=== PATIENT | male | born 1955 | race Caucasian/White ===

== ENCOUNTER 2019-10-23 07:32 | Outpatient (CLI) | payer BC ==
--- NOTE | 2019-10-23 08:26 | ULT ---
ABDOMINAL ULTRASOUND: DATE: 10/23/2019. PROVIDED CLINICAL HISTORY: Splenomegaly and anemia. FINDINGS: The visualized abdominal aorta, IVC, and pancreas appear normal. The liver demonstrates no evidence for a mass or intrahepatic biliary ductal dilatation. The common duct is not dilated. The gallbladder is contracted but echogenic nonshadowing nonmobile f ocus adherence of the anterior wall measuring about 4 mm. No wall thickening or pericholecystic flui d. Kidneys demonstrate no evidence for hydronephrosis or solid mass. Simple-appearing 1 cm exophytic le ft renal cyst. The spleen appears enlarged measuring about 15.7 x 5.8 x 14.5 cm. IMPRESSION: 1. Splenomegaly. 2. Nonmobile echogenic focus associated with the gallbladder wall is likely reflective of an adheren t small gallstone versus polyp. POS: OFF
== END 2019-10-23 07:33 | disposition home or self-care (01) ==
LOC: BICULT 07:32
PROVIDERS: ATTEND Internal Medicine Hematology & Oncology
DX: R16.1 Splenomegaly, not elsewhere classified (principal); D50.9 Iron deficiency anemia, unspecified
CPT/HCPCS: 93975

== ENCOUNTER 2019-10-28 08:31 | Day surgery (SDC) | payer BC ==
[2019-10-27 13:28] VITALS: BMI 26.5
[2019-10-28 08:55] LABS: PTT 27.4 SEC (22.9-36.1); Prothrombin Time 13.5 SEC (12.0-14.7)
[2019-10-28 10:50] VITALS: BP 123/68; TEMP 97.6
--- NOTE | 2019-10-28 17:23 | CT ---
CT-guided random bone marrow biopsy: DATE: 10/28/2019 HISTORY: 64-year-old male with iron deficiency anemia. TECHNIQUE: Signed informed consent obtained. Patient placed prone on CT table. Skin over right posterior superio r iliac spine prepped and draped in usual sterile fashion. 25-gauge needle used to apply buffered lidocaine superficially at the skin, then multiple times at the posterior periosteal surface. 12-gaug e on control biopsy needle with stylette advanced into the marrow cavity a depth of 1.5 cm using power drill. Stylette removed. Bone marrow aspiration performed, first 3 mL, then 6 mL, with both syr inges given to ophthalmic technician apprentice from laboratory. Next, using power drill, the biopsy needle was advanced and retracted. Compression was held at the puncture site. Patient tolerated procedure well. No compli cations. 4.5 cm fragment of bone in at least 2 pieces, were given to the geochemical laboratory technician. IMPRESSION: 1. Successful bone marrow aspiration. 2. Successful bone marrow biopsy.
== END 2019-10-28 11:30 | disposition home or self-care (01) ==
LOC: CT 08:31
PROVIDERS: ATTEND Internal Medicine Hematology & Oncology
PROC: 079T3ZX Drainage of Bone Marrow, Percutaneous Approach, Diagnostic (ICD-10-PCS; principal; 2019-10-28)
PROC: 07DR3ZX Extraction of Iliac Bone Marrow, Percutaneous Approach, Diagnostic (ICD-10-PCS; principal; 2019-10-28)
DX: D50.9 Iron deficiency anemia, unspecified (principal)
CPT/HCPCS: 20225; 36415; 77012; 85097; 85610; 85730; 88184; 88237; 88305; 88311; 88313; 88341; 88342

== ENCOUNTER 2021-12-06 20:32 | Inpatient (IN) | payer BC, MEDICARE ==
[2021-12-06 22:00] LABS: Hemoglobin 9.6 g/dL (14.0-18.0); Mean Corpuscular HGB CONC 32.8 g/dL (32.0-36.0); Mean Corpuscular Hemoglobin 35.7 pg (27.0-31.0); Mean Platelet Volume 10.6 fL (7.4-10.4); Platelet Count 202 thou/uL (130-400); RBC Distribution Width 25.6 % (11.5-14.5); Red Blood Cell (RBC) Count 2.69 mill/uL (4.70-6.10); White Blood Cell (WBC) Count 5.4 thou/uL (4.8-10.8)
[2021-12-06 22:12] LABS: ALT (SGPT) 20 U/L (8-55); AST (SGOT) 16 U/L (5-34); Albumin 4.7 g/dL (3.4-4.8); Alkaline Phosphatase 56 U/L (40-110); Anion Gap 15 mmol/L (10-20); BUN (Urea Nitrogen) 17 mg/dL (8.4-25.7); Bilirubin, Total 0.7 mg/dL (0.2-1.2); Calc. Creatinine Clearance 0 mL/min (70-130); Calcium 9.8 mg/dL (7.8-10.44); Carbon Dioxide 23 mmol/L (23-31); Chloride 107 mmol/L (98-107); Globulin 2.4 g/dL (2.4-3.5); Glucose 195 mg/dL (80-115); Potassium 4.4 mmol/L (3.5-5.1); Protein, Total 7.1 g/dL (5.8-8.1); Sodium 141 mmol/L (136-145)
[2021-12-06] MEDS ORDERED: Piperacillin/Tazobactam 3.375 GM VIAL ONE (22:15)
[2021-12-06 22:18] LABS: #Basophils 0.1 thou/uL (0.0-0.2); #Eosinphils 0.2 thou/uL (0.0-0.7); #Monocytes 0.4 thou/uL (0.11-0.59); #Neutrophils 3.8 thou/uL (1.40-6.50); %Eosinophils 3.5 % (0.0-10.0); %Lymphocytes 18.2 % (21.0-51.0); %Monocytes 6.6 % (0.0-10.0); %Neutrophils 70.7 % (42.0-75.0); Anisocytosis MODERATE=16-30 cells (100X) (0-5/hpf); MDiff Complete? YES; Macrocytosis SLIGHT = 6-15 cells (100X) (0-5/hpf); Schistocytes SLIGHT = 2-5 cells (100X) (0-1/hpf); Tear Drops SLIGHT = 2-5 cells (100X) (0-1/hpf)
[2021-12-07] MEDS ORDERED: Vancomycin 1 GM/200 ML BAG ONE (00:02)
[2021-12-07 00:56] LABS: Lactic Acid 1.8 mmol/L (0.5-2.2)
[2021-12-07 01:05] VITALS: BMI 27.5
[2021-12-07] MEDS: Sodium Chloride 0.9% 1,000 ML IV SCH ×3 (01:22→18:06)
[2021-12-07] MEDS ORDERED: Morphine 4 MG/ML VIAL SLOW IVP PRN (01:23)
[2021-12-07] MEDS ORDERED: Dextrose 5% in Water 1,000 ML IV PRN (03:45)
[2021-12-07] MEDS ORDERED: Ondansetron PF 4 MG/2 ML Vial IVP PRN (03:45)
[2021-12-07] MEDS ORDERED: Dextrose 50% Abboject 50 ML SYRINGE SLOW IVP PRN (03:45)
[2021-12-07] MEDS ORDERED: HumaLOG 300 UNITS/3 ML VIAL SC PRN ×2 (03:45)
[2021-12-07] MEDS ORDERED: Ondansetron ODT 4 MG TAB PO PRN (03:45)
[2021-12-07] MEDS ORDERED: Acetaminophen 650 MG Suppository PR PRN (03:45)
[2021-12-07] MEDS: cefTRIAXone\\ROCEPHIN 1 GM in Sodium Chloride 0.9% 100 ML IVPB SCH (05:18)
[2021-12-07] MEDS: Acetaminophen 325 MG TAB PO PRN ×2 (05:47→13:33)
[2021-12-07] MEDS: Enoxaparin Sodium 40 MG/0.4 ML SYRINGE SC SCH (09:23)
[2021-12-07] MEDS ORDERED: Amlodipine 5 MG TAB PO SCH (10:00)
[2021-12-07] MEDS ORDERED: metFORMIN 850 MG TAB PO SCH (10:00)
[2021-12-07] MEDS ORDERED: Iopamidol-370 76% 500 ML 1 ML ONE (10:41)
[2021-12-07] MEDS ORDERED: Iopamidol 370 76% 50 ML VIAL FS ONE (10:41)
[2021-12-07 14:37] LABS: SARS-CoV-2 PCR by NAA Not Detected (NotDetected)
[2021-12-07] MEDS: metFORMIN 850 MG TAB PO SCH (17:00)
[2021-12-07] MEDS: Gabapentin 300 MG CAP PO SCH (21:42)
[2021-12-07] MEDS: Lisinopril 10 MG TAB PO SCH (21:42)
[2021-12-07] MEDS: Aspirin Chewable 81 MG TAB PO SCH (21:43)
[2021-12-07] MEDS: Atorvastatin Calcium 10 MG TAB PO SCH (21:43)
[2021-12-08] MEDS: Sodium Chloride 0.9% 1,000 ML IV SCH ×2 (00:01→07:38)
[2021-12-08] MEDS: cefTRIAXone\\ROCEPHIN 1 GM in Sodium Chloride 0.9% 100 ML IVPB SCH (05:19)
[2021-12-08 06:33] LABS: #Eosinphils 0.2 thou/uL (0.0-0.7); #Monocytes 0.3 thou/uL (0.11-0.59); #Neutrophils 2.4 thou/uL (1.40-6.50); %Basophils 0.6 % (0.0-1.0); %Eosinophils 4.5 % (0.0-10.0); %Lymphocytes 25.4 % (21.0-51.0); %Monocytes 7.6 % (0.0-10.0); Hemoglobin 8.6 g/dL (14.0-18.0); Mean Corpuscular HGB CONC 34.3 g/dL (32.0-36.0); Mean Platelet Volume 10.8 fL (7.4-10.4); Platelet Count 166 thou/uL (130-400); Red Blood Cell (RBC) Count 2.31 mill/uL (4.70-6.10); White Blood Cell (WBC) Count 3.8 thou/uL (4.8-10.8)
[2021-12-08 06:54] LABS: Anion Gap 11 mmol/L (10-20); BUN (Urea Nitrogen) 12 mg/dL (8.4-25.7); Calc. Creatinine Clearance 117 mL/min (70-130); Carbon Dioxide 24 mmol/L (23-31); Chloride 108 mmol/L (98-107); Glucose 123 mg/dL (80-115); Potassium 4.3 mmol/L (3.5-5.1); Sodium 139 mmol/L (136-145)
[2021-12-08] MEDS ORDERED: Piperacillin/Tazobactam 3.375 GM in Sodium Chloride 0.9% 100 ML IVPB SCH ×2 (07:15→08:00)
[2021-12-08] MEDS: metFORMIN 850 MG TAB PO SCH ×2 (07:41→16:23)
[2021-12-08] MEDS: Amlodipine 5 MG TAB PO SCH (07:42)
[2021-12-08] MEDS: Enoxaparin Sodium 40 MG/0.4 ML SYRINGE SC SCH (07:42)
[2021-12-08] MEDS ORDERED: Heparin 5,000 UNITS/ML VIAL ONE (08:04)
[2021-12-08] MEDS ORDERED: Protamine Sulfate 50 MG/5 ML VIAL ONE (08:04)
[2021-12-08] MEDS ORDERED: Bupivacaine PF 0.5% 30 ML VIAL ONE (08:20)
[2021-12-08] MEDS ORDERED: EPINEPHrine 1 MG/ML AMP ONE (08:20)
[2021-12-08] MEDS ORDERED: Fentanyl 250 MCG/5 ML VIAL ONE (08:38)
[2021-12-08] MEDS ORDERED: Phenylephrine 10 MG/ML VIAL ONE (08:38)
[2021-12-08] MEDS ORDERED: Lidocaine 1% MPF 2 ML VIAL ONE (08:59)
[2021-12-08] MEDS ORDERED: Ondansetron PF 4 MG/2 ML Vial ONE (10:59)
[2021-12-08] MEDS ORDERED: Dexamethasone 20 MG/5 ML VIAL ONE (10:59)
[2021-12-08] MEDS ORDERED: Lidocaine 1% PF 5 ML VIAL ONE (10:59)
[2021-12-08] MEDS ORDERED: Glycopyrrolate 0.2 MG/ML 5 ML SYRINGE ONE (10:59)
[2021-12-08] MEDS ORDERED: Rocuronium Bromide 10 MG/ML (10ML VIAL) ONE (10:59)
[2021-12-08] MEDS ORDERED: PROPOFOL 200 MG/20 ML VIAL ONE (10:59)
[2021-12-08] MEDS ORDERED: Heparin 10,000 UNITS/ 10 ML VIAL ONE (11:35)
[2021-12-08] MEDS ORDERED: Fentanyl 100 MCG/2 ML VIAL SLOW IVP PRN (12:51)
[2021-12-08] MEDS ORDERED: Morphine Sulfate 2 MG/ML SYRINGE SLOW IVP PRN (13:01)
[2021-12-08] MEDS ORDERED: Ondansetron HCl/PF 4 MG/2 ML Vial IVP PRN (13:01)
[2021-12-08] MEDS ORDERED: Promethazine HCl 25 MG/ML VIAL IM PRN (13:01)
[2021-12-08] MEDS ORDERED: Promethazine HCl 25 MG/ML VIAL IVPB PRN (13:01)
[2021-12-08] MEDS: Lactated Ringer's 1,000 ML IV SCH (14:44)
[2021-12-08] MEDS: Piperacillin/Tazobactam 3.375 GM in Sodium Chloride 0.9% 100 ML IVPB SCH ×2 (16:23→23:04)
[2021-12-08] MEDS: HYDROcodone/Acetaminophen 5/325 mg Tablet PO PRN ×2 (17:23→23:03)
[2021-12-08 17:30] LABS: Anion Gap 12 mmol/L (10-20); BUN (Urea Nitrogen) 14 mg/dL (8.4-25.7); Calc. Creatinine Clearance 103 mL/min (70-130); Calcium 8.9 mg/dL (7.8-10.44); Carbon Dioxide 23 mmol/L (23-31); Chloride 107 mmol/L (98-107); Glucose 179 mg/dL (80-115); Potassium 4.5 mmol/L (3.5-5.1); Sodium 137 mmol/L (136-145)
[2021-12-08] MEDS: VICTOZA 18 MG/3 ML PEN SC SCH (20:58)
[2021-12-08] MEDS: Aspirin Chewable 81 MG TAB PO SCH (20:58)
[2021-12-08] MEDS: Gabapentin 300 MG CAP PO SCH (20:59)
[2021-12-08] MEDS: Atorvastatin Calcium 10 MG TAB PO SCH (20:59)
[2021-12-08] MEDS: Lisinopril 10 MG TAB PO SCH (20:59)
[2021-12-09] MEDS: Lactated Ringer's 1,000 ML IV SCH ×2 (04:58→16:49)
[2021-12-09 06:07] LABS: #Eosinphils 0.1 thou/uL (0.0-0.7); #Lymphocytes 1.2 thou/uL (1.20-3.40); #Monocytes 0.6 thou/uL (0.11-0.59); #Neutrophils 4.3 thou/uL (1.40-6.50); %Basophils 0.4 % (0.0-1.0); %Eosinophils 1.4 % (0.0-10.0); %Lymphocytes 19.3 % (21.0-51.0); %Monocytes 10.2 % (0.0-10.0); %Neutrophils 68.7 % (42.0-75.0); Mean Corpuscular HGB CONC 33.5 g/dL (32.0-36.0); Mean Corpuscular Hemoglobin 36.6 pg (27.0-31.0); Mean Platelet Volume 10.3 fL (7.4-10.4); Platelet Count 179 thou/uL (130-400); RBC Distribution Width 25.1 % (11.5-14.5); Red Blood Cell (RBC) Count 2.19 mill/uL (4.70-6.10); White Blood Cell (WBC) Count 6.3 thou/uL (4.8-10.8)
[2021-12-09] MEDS: Piperacillin/Tazobactam 3.375 GM in Sodium Chloride 0.9% 100 ML IVPB SCH ×3 (07:47→23:20)
[2021-12-09] MEDS: Amlodipine 5 MG TAB PO SCH (07:50)
[2021-12-09] MEDS: metFORMIN 850 MG TAB PO SCH ×2 (07:50→16:50)
[2021-12-09] MEDS: Enoxaparin Sodium 40 MG/0.4 ML SYRINGE SC SCH (07:50)
[2021-12-09] MEDS: HYDROcodone/Acetaminophen 5/325 mg Tablet PO PRN ×2 (11:38→20:30)
[2021-12-09 16:01] LABS: Anion Gap 12 mmol/L (10-20); BUN (Urea Nitrogen) 14 mg/dL (8.4-25.7); Calc. Creatinine Clearance 105 mL/min (70-130); Calcium 8.7 mg/dL (7.8-10.44); Carbon Dioxide 23 mmol/L (23-31); Chloride 109 mmol/L (98-107); Glucose 143 mg/dL (80-115); Potassium 3.7 mmol/L (3.5-5.1); Sodium 140 mmol/L (136-145)
[2021-12-09] MEDS: Aspirin Chewable 81 MG TAB PO SCH (20:29)
[2021-12-09] MEDS: Gabapentin 300 MG CAP PO SCH (20:29)
[2021-12-09] MEDS: Lisinopril 10 MG TAB PO SCH (20:29)
[2021-12-09] MEDS: VICTOZA 18 MG/3 ML PEN SC SCH (20:30)
[2021-12-09] MEDS: Atorvastatin Calcium 10 MG TAB PO SCH (20:30)
[2021-12-10] MEDS ORDERED: Bisacodyl 5 MG TAB PO PRN (00:06)
[2021-12-10] MEDS ORDERED: Calcium Carbonate 500 MG ChewTAB PO PRN (00:06)
[2021-12-10] MEDS: Lactated Ringer's 1,000 ML IV SCH (05:00)
[2021-12-10] MEDS: HYDROcodone/Acetaminophen 5/325 mg Tablet PO PRN (05:06)
[2021-12-10 06:32] LABS: #Eosinphils 0.1 thou/uL (0.0-0.7); #Lymphocytes 0.8 thou/uL (1.20-3.40); #Monocytes 0.5 thou/uL (0.11-0.59); #Neutrophils 3.9 thou/uL (1.40-6.50); %Basophils 0.4 % (0.0-1.0); %Eosinophils 2.3 % (0.0-10.0); %Lymphocytes 15.3 % (21.0-51.0); %Monocytes 10.1 % (0.0-10.0); %Neutrophils 71.9 % (42.0-75.0); Hemoglobin 8.1 g/dL (14.0-18.0); Mean Corpuscular HGB CONC 32.8 g/dL (32.0-36.0); Mean Corpuscular Hemoglobin 36.4 pg (27.0-31.0); Mean Platelet Volume 10.1 fL (7.4-10.4); Platelet Count 189 thou/uL (130-400); RBC Distribution Width 25.2 % (11.5-14.5); Red Blood Cell (RBC) Count 2.22 mill/uL (4.70-6.10); White Blood Cell (WBC) Count 5.4 thou/uL (4.8-10.8)
[2021-12-10 08:12] VITALS: TEMP 98.1
[2021-12-10] MEDS: Piperacillin/Tazobactam 3.375 GM in Sodium Chloride 0.9% 100 ML IVPB SCH (08:39)
[2021-12-10] MEDS: metFORMIN 850 MG TAB PO SCH (08:39)
[2021-12-10] MEDS: Amlodipine 5 MG TAB PO SCH (08:39)
[2021-12-10] MEDS: Enoxaparin Sodium 40 MG/0.4 ML SYRINGE SC SCH (08:40)
[2021-12-10 13:34] VITALS: BP 157/70
== END 2021-12-10 13:25 | disposition home or self-care (01) | DRG 253 ==
LOC: ERS 20:32 → T4-A 23:09
PROVIDERS: ADMIT Student in an Organized Health Care Education/Training Program; ATTEND Internal Medicine
PROC: 04CK0ZZ Extirpation of Matter from Right Femoral Artery, Open Approach (ICD-10-PCS; principal; 2021-12-08)
PROC: 04UK0KZ Supplement Right Femoral Artery with Nonautologous Tissue Substitute, Open Approach (ICD-10-PCS; 2021-12-08)
DX: E11.51 Type 2 diabetes mellitus with diabetic peripheral angiopathy without gangrene (principal); L03.115 Cellulitis of right lower limb; I70.92 Chronic total occlusion of artery of the extremities; Z20.822 Contact with and (suspected) exposure to COVID-19; D53.9 Nutritional anemia, unspecified; L97.519 Non-pressure chronic ulcer of other part of right foot with unspecified severity; D46.9 Myelodysplastic syndrome, unspecified; I70.235 Atherosclerosis of native arteries of right leg with ulceration of other part of foot; F17.210 Nicotine dependence, cigarettes, uncomplicated; K59.00 Constipation, unspecified; Z79.899 Other long term (current) drug therapy; Z79.82 Long term (current) use of aspirin; Z90.49 Acquired absence of other specified parts of digestive tract
CPT/HCPCS: 36415; 36416; 75635; 80048; 80053; 83605; 85025; 86850; 86900; 86901; 87040; 96365; C1713; C1776; J0171; J0696; J1100; J1642; J1644; J1650; J1815; J2270; J2370; J2405; J2543; J2704; J2720; J3010; J3370; J3490; J7050; J7120; Q9967; S0020; U0003; U0005

== ENCOUNTER 2022-03-29 08:54 | Day surgery (SDC) | payer BC, OTHER ==
[2022-03-29] MEDS ORDERED: diphenhydrAMINE 25 MG CAP ONE (09:18)
[2022-03-29] MEDS ORDERED: Acetaminophen 500 MG TAB ONE (09:18)
[2022-03-29] MEDS ORDERED: diphenhydrAMINE 25 MG CAP PO SCH (09:30)
[2022-03-29] MEDS ORDERED: Acetaminophen 500 MG TAB PO SCH (09:30)
[2022-03-29 11:54] VITALS: TEMP 97.8
[2022-03-29 14:14] VITALS: BP 122/68
== END 2022-03-29 14:14 | disposition home or self-care (01) ==
LOC: ONC/OP 08:54
PROVIDERS: ATTEND Internal Medicine Hematology & Oncology
PROC: 30233N1 Transfusion of Nonautologous Red Blood Cells into Peripheral Vein, Percutaneous Approach (ICD-10-PCS; principal; 2022-03-29)
DX: D64.9 Anemia, unspecified (principal); D69.6 Thrombocytopenia, unspecified
CPT/HCPCS: 36430; 86850; 86900; 86901; P9016

== ENCOUNTER 2023-06-05 15:35 | Emergency (ER) | payer BC, MEDICARE ==
[2023-06-05 16:33] LABS: #Eosinphils 0.1 thou/uL (0.0-0.7); #Monocytes 0.5 thou/uL (0.11-0.59); #Neutrophils 4.4 thou/uL (1.40-6.50); %Basophils 0.5 % (0.0-1.0); %Lymphocytes 14.9 % (21.0-51.0); %Monocytes 8.1 % (0.0-10.0); %Neutrophils 74.5 % (42.0-75.0); Hematocrit 30.8 % (42.0-52.0); Hemoglobin 10.5 g/dL (14.0-18.0); Mean Corpuscular HGB CONC 34.1 g/dL (32.0-36.0); Mean Corpuscular Hemoglobin 34.8 pg (27.0-31.0); Mean Platelet Volume 12.2 fL (7.4-10.4); Platelet Count 267 10x3/uL (130-400); RBC Distribution Width 21.8 % (11.5-14.5); Red Blood Cell (RBC) Count 3.02 mill/uL (4.70-6.10)
[2023-06-05 16:55] LABS: ALT (SGPT) 27 U/L (8-55); AST (SGOT) 23 U/L (5-34); Alkaline Phosphatase 65 U/L (40-110); Anion Gap 15 mmol/L (10-20); BUN (Urea Nitrogen) 16 mg/dL (8.4-25.7); Bilirubin, Total 1.6 mg/dL (0.2-1.2); Calc. Creatinine Clearance 0 mL/min (70-130); Calcium 9.8 mg/dL (7.8-10.44); Carbon Dioxide 21 mmol/L (23-31); Chloride 105 mmol/L (98-107); Estimated GFR 72; Globulin 2.4 g/dL (2.4-3.5); Glucose 197 mg/dL (80-115); Potassium 4.4 mmol/L (3.5-5.1); Protein, Total 7.4 g/dL (5.8-8.1); Sodium 137 mmol/L (136-145)
[2023-06-05 17:01] LABS: Troponin I 0.011 ng/mL (< 0.028)
[2023-06-05 18:04] LABS: Bacteria/HPF None Seen HPF (None Seen); Bilirubin Negative (Negative); Blood, Urine Negative (Negative); CAUTI Indications for Culture Dysuria,urgency,freq; Clarity Clear (Clear); Glucose, Urine (Dipstick) Normal (Negative); Ketone, Urine Negative (Negative); Leukocyte Negative Leu/uL (Negative); Nitrite Negative (Negative); Protein, Urine (Dipstick) 30 mg/dL (Neg-Trace); RBC/HPF None Seen HPF (0-3); Specific Gravity, Urine 1.018 (1.002-1.036); Squamous Epithelial None Seen HPF (0-3); Urobilinogen Normal mg/dL (Less than 2); WBC/HPF 0-3 HPF (0-3); pH, Urine 5.5 (5.0-9.0)
[2023-06-05 18:06] LABS: Urine Culture Reflex No No
== END 2023-06-05 18:18 | disposition home or self-care (01) ==
LOC: ERS 15:35
DX: S00.83XA Contusion of other part of head, initial encounter (principal); S00.31XA Abrasion of nose, initial encounter; E11.9 Type 2 diabetes mellitus without complications; Z79.84 Long term (current) use of oral hypoglycemic drugs; W19.XXXA Unspecified fall, initial encounter
CPT/HCPCS: 36415; 70450; 71045; 80076; 81001; 84484; 85025; 85379; 93005

== ENCOUNTER 2023-08-13 12:01 | Day surgery (SDC) | payer MEDICARE, BC ==
[2023-08-13] MEDS ORDERED: diphenhydrAMINE 25 MG CAP PO SCH (12:30)
[2023-08-13] MEDS ORDERED: Acetaminophen 500 MG TAB PO SCH (12:30)
[2023-08-13] MEDS ORDERED: Acetaminophen 500 MG TAB ONE (12:49)
[2023-08-13] MEDS ORDERED: diphenhydrAMINE 25 MG CAP ONE (12:49)
[2023-08-13] MEDS ORDERED: FLU VACC QS2023(65UP)/MF59C/PF 60 MCG/0.5 ML SYRINGE IM ONE (14:30)
[2023-08-13 16:00] VITALS: BP 137/65; TEMP 98.2
== END 2023-08-13 15:56 | disposition home or self-care (01) ==
LOC: ONC/OP 12:01
PROVIDERS: ATTEND Internal Medicine Hematology & Oncology
DX: D64.9 Anemia, unspecified (principal); D69.6 Thrombocytopenia, unspecified
CPT/HCPCS: 36430; 86850; 86900; 86901; 86920; 90694; G0008; P9016; 90471

== ENCOUNTER 2023-09-19 07:43 | Outpatient (CLI) | payer MEDICARE, BC | END 2023-09-19 07:44 | disposition home or self-care (01) | LOC: CT 07:43 | PROVIDERS: ATTEND Specialist | DX: I65.23 Occlusion and stenosis of bilateral carotid arteries (principal) | CPT/HCPCS: 70498; 82565 ==

== ENCOUNTER 2024-07-20 08:48 | Day surgery (SDC) | payer MEDICARE, BC ==
[2024-07-17 13:34] VITALS: BMI 26.6
[2024-07-20] MEDS ORDERED: Lidocaine 1% w/Epinephrine 1:100K 20 ML VIAL ONE (10:19)
== END 2024-07-20 12:47 | disposition home or self-care (01) ==
LOC: SDC 08:48
PROVIDERS: ATTEND Internal Medicine Cardiovascular Disease
PROC: 0JH632Z Insertion of Monitoring Device into Chest Subcutaneous Tissue and Fascia, Percutaneous Approach (ICD-10-PCS; principal; 2024-07-20)
DX: R55 Syncope and collapse (principal); I44.1 Atrioventricular block, second degree; I44.30 Unspecified atrioventricular block; E11.9 Type 2 diabetes mellitus without complications; I10 Essential (primary) hypertension; I77.9 Disorder of arteries and arterioles, unspecified; E78.5 Hyperlipidemia, unspecified; I73.9 Peripheral vascular disease, unspecified; R42 Dizziness and giddiness; I65.03 Occlusion and stenosis of bilateral vertebral arteries; Z79.84 Long term (current) use of oral hypoglycemic drugs; Z79.85 Long-term (current) use of injectable non-insulin antidiabetic drugs; Z79.82 Long term (current) use of aspirin; Z79.899 Other long term (current) drug therapy; Z87.891 Personal history of nicotine dependence; Z90.49 Acquired absence of other specified parts of digestive tract
CPT/HCPCS: 33285

== ENCOUNTER 2024-08-13 09:15 | Day surgery (SDC) | payer MEDICARE, BC ==
[2024-08-13] MEDS ORDERED: diphenhydrAMINE 25 MG CAP PO SCH (09:30)
[2024-08-13] MEDS ORDERED: Acetaminophen 500 MG TAB ONE (10:38)
[2024-08-13] MEDS: Acetaminophen 500 MG TAB PO SCH (10:39)
[2024-08-13 13:58] VITALS: BP 129/61; TEMP 98.1
[2024-08-13] MEDS ORDERED: FLU (Fluad Triv) TS24-25 (65UP)/MF59C/PF 45 MCG/0.5 ML Syringe IM ONE (14:30)
== END 2024-08-13 13:59 | disposition home or self-care (01) ==
LOC: ONC/OP 09:15
PROVIDERS: ATTEND Internal Medicine Hematology & Oncology
DX: D64.9 Anemia, unspecified (principal); D69.6 Thrombocytopenia, unspecified
CPT/HCPCS: 36430; 86850; 86900; 86901; 86920; P9016

== ENCOUNTER 2024-09-04 09:23 | Day surgery (SDC) | payer MEDICARE, BC ==
[2024-09-04] MEDS ORDERED: diphenhydrAMINE 25 MG CAP ONE (09:57)
[2024-09-04] MEDS ORDERED: Acetaminophen 500 MG TAB ONE (09:57)
[2024-09-04] MEDS: diphenhydrAMINE 25 MG CAP PO SCH (09:58)
[2024-09-04] MEDS: Acetaminophen 500 MG TAB PO SCH (09:58)
[2024-09-04 15:05] VITALS: BP 127/71; TEMP 98.1
== END 2024-09-04 15:20 | disposition home or self-care (01) ==
LOC: ONC/OP 09:23
PROVIDERS: ATTEND Internal Medicine Hematology & Oncology
DX: D64.9 Anemia, unspecified (principal); D69.6 Thrombocytopenia, unspecified
CPT/HCPCS: 36430; 86850; 86900; 86901; 86920; P9016

== ENCOUNTER 2024-09-17 10:11 | Day surgery (SDC) | payer MEDICARE, BC ==
[2024-09-17] MEDS ORDERED: Acetaminophen 500 MG TAB ONE (10:45)
[2024-09-17] MEDS ORDERED: diphenhydrAMINE 25 MG CAP ONE (10:46)
[2024-09-17] MEDS: diphenhydrAMINE 25 MG CAP PO SCH (10:47)
[2024-09-17] MEDS: Acetaminophen 500 MG TAB PO SCH (10:47)
[2024-09-17 14:02] VITALS: TEMP 98.1
[2024-09-17 15:52] VITALS: BP 120/63
== END 2024-09-17 16:09 | disposition home or self-care (01) ==
LOC: ONC/OP 10:11
PROVIDERS: ATTEND Internal Medicine Hematology & Oncology
DX: D64.9 Anemia, unspecified (principal); D69.6 Thrombocytopenia, unspecified
CPT/HCPCS: 36430; 86850; 86900; 86901; 86920; P9016

== ENCOUNTER 2024-09-23 11:05 | Day surgery (SDC) | payer MEDICARE, BC ==
[2024-09-23] MEDS ORDERED: Acetaminophen 500 MG TAB ONE (12:07)
[2024-09-23] MEDS ORDERED: diphenhydrAMINE 25 MG CAP ONE (12:07)
[2024-09-23] MEDS: Acetaminophen 500 MG TAB PO SCH (12:10)
[2024-09-23] MEDS: diphenhydrAMINE 25 MG CAP PO SCH (12:10)
[2024-09-23 13:46] VITALS: TEMP 98.5
[2024-09-23 15:05] VITALS: BP 120/59
== END 2024-09-23 15:07 | disposition home or self-care (01) ==
LOC: ONC/OP 11:05
PROVIDERS: ATTEND Internal Medicine Hematology & Oncology
DX: D64.9 Anemia, unspecified (principal); D69.6 Thrombocytopenia, unspecified
CPT/HCPCS: 36430; 86850; 86900; 86901; 86920; P9016

== ENCOUNTER 2024-10-01 10:45 | Day surgery (SDC) | payer MEDICARE, BC ==
[2024-10-01] MEDS ORDERED: Acetaminophen 500 MG TAB ONE (11:38)
[2024-10-01] MEDS ORDERED: diphenhydrAMINE 25 MG CAP ONE (11:38)
[2024-10-01] MEDS: Acetaminophen 500 MG TAB PO SCH (11:39)
[2024-10-01] MEDS: diphenhydrAMINE 25 MG CAP PO SCH (11:39)
[2024-10-01 14:08] VITALS: BP 112/56; TEMP 98.6
== END 2024-10-01 14:11 | disposition home or self-care (01) ==
LOC: ONC/OP 10:45
PROVIDERS: ATTEND Nurse Practitioner Adult Health
DX: D64.9 Anemia, unspecified (principal); D69.6 Thrombocytopenia, unspecified
CPT/HCPCS: 36430; 86850; 86900; 86901; 86920; P9016

== ENCOUNTER 2024-10-08 11:28 | Day surgery (SDC) | payer MEDICARE, BC ==
[2024-10-08] MEDS ORDERED: diphenhydrAMINE 25 MG CAP ONE (12:23)
[2024-10-08] MEDS ORDERED: Acetaminophen 500 MG TAB ONE (12:23)
[2024-10-08] MEDS: Acetaminophen 500 MG TAB PO SCH (12:24)
[2024-10-08] MEDS: diphenhydrAMINE 25 MG CAP PO SCH (12:25)
[2024-10-08 13:05] VITALS: TEMP 98.3
[2024-10-08 14:54] VITALS: BP 129/64
== END 2024-10-08 15:21 | disposition home or self-care (01) ==
LOC: ONC/OP 11:28
PROVIDERS: ATTEND Internal Medicine Hematology & Oncology
DX: D64.9 Anemia, unspecified (principal); D69.6 Thrombocytopenia, unspecified
CPT/HCPCS: 36430; 86850; 86900; 86901; 86920; P9016; 80076; 85025

== ENCOUNTER 2024-10-23 08:25 | Day surgery (SDC) | payer MEDICARE, BC ==
[2024-10-23] MEDS ORDERED: Acetaminophen 500 MG TAB ONE (09:14)
[2024-10-23] MEDS ORDERED: diphenhydrAMINE 25 MG CAP ONE (09:14)
[2024-10-23] MEDS: Acetaminophen 500 MG TAB PO SCH (09:15)
[2024-10-23] MEDS: diphenhydrAMINE 25 MG CAP PO SCH (09:16)
[2024-10-23 10:20] VITALS: TEMP 98.1
[2024-10-23 12:18] VITALS: BP 126/61
== END 2024-10-23 12:19 | disposition home or self-care (01) ==
LOC: ONC/OP 08:25
PROVIDERS: ATTEND Internal Medicine Hematology & Oncology
DX: D64.9 Anemia, unspecified (principal); D69.6 Thrombocytopenia, unspecified
CPT/HCPCS: 36430; 86850; 86900; 86901; 86920; P9016

== ENCOUNTER 2024-10-29 11:20 | Day surgery (SDC) | payer MEDICARE, BC ==
[2024-10-29] MEDS ORDERED: Acetaminophen 500 MG TAB ONE (11:48)
[2024-10-29] MEDS ORDERED: diphenhydrAMINE 25 MG CAP ONE (11:48)
[2024-10-29] MEDS ORDERED: diphenhydrAMINE 25 MG CAP PO SCH (12:00)
[2024-10-29] MEDS ORDERED: Acetaminophen 500 MG TAB PO SCH (12:00)
[2024-10-29 13:46] VITALS: TEMP 98
[2024-10-29 14:36] VITALS: BP 140/69
== END 2024-10-29 14:39 | disposition home or self-care (01) ==
LOC: ONC/OP 11:20
PROVIDERS: ATTEND Internal Medicine Hematology & Oncology
DX: D46.1 Refractory anemia with ring sideroblasts (principal); D69.6 Thrombocytopenia, unspecified
CPT/HCPCS: 36430; 86850; 86900; 86901; 86920; P9016; 36415; 80076

== ENCOUNTER 2024-11-05 09:21 | Day surgery (SDC) | payer MEDICARE, BC ==
[2024-11-05] MEDS ORDERED: Acetaminophen 500 MG TAB ONE (10:16)
[2024-11-05] MEDS ORDERED: diphenhydrAMINE 25 MG CAP ONE (10:16)
[2024-11-05] MEDS: diphenhydrAMINE 25 MG CAP PO SCH (10:17)
[2024-11-05] MEDS: Acetaminophen 500 MG TAB PO SCH (10:17)
[2024-11-05 13:24] VITALS: BP 141/67; TEMP 98.7
== END 2024-11-05 13:26 | disposition home or self-care (01) ==
LOC: ONC/OP 09:21
PROVIDERS: ATTEND Internal Medicine Hematology & Oncology
DX: D64.9 Anemia, unspecified (principal)
CPT/HCPCS: 36430; 86850; 86900; 86901; 86920; P9016

== ENCOUNTER → 2024-12-03 | Day surgery (SDC) | payer MEDICARE, BC ==
[~2024-12-03] MED LIST: Acetaminophen 500 MG TAB ONE; diphenhydrAMINE 25 MG CAP ONE
[2024-12-03] MEDS: Acetaminophen 500 MG TAB PO SCH (12:47)
[2024-12-03] MEDS: diphenhydrAMINE 25 MG CAP PO SCH (12:47)
[2024-12-03 15:43] VITALS: BP 141/64; TEMP 98.1
== END ==
LOC: ONC/OP 11:38
PROVIDERS: ATTEND Internal Medicine Hematology & Oncology
DX: D64.9 Anemia, unspecified (principal); D69.6 Thrombocytopenia, unspecified
CPT/HCPCS: 36430; 86850; 86900; 86901; 86920; P9016

== ENCOUNTER 2025-05-27 10:45 | Day surgery (SDC) | payer MEDICARE, BC ==
[2025-05-27] MEDS: diphenhydrAMINE 25 MG CAP PO SCH (12:26)
[2025-05-27] MEDS: Acetaminophen 500 MG TAB PO SCH (12:26)
[2025-05-27] MEDS ORDERED: Acetaminophen 500 MG TAB ONE (12:27)
[2025-05-27] MEDS ORDERED: diphenhydrAMINE 25 MG CAP ONE (12:27)
[2025-05-27 15:26] VITALS: TEMP 98
[2025-05-27 15:30] VITALS: BP 131/62
== END 2025-05-27 15:31 | disposition home or self-care (01) ==
LOC: ONC/OP 10:45
PROVIDERS: ATTEND Internal Medicine Hematology & Oncology
DX: D64.9 Anemia, unspecified (principal); D69.6 Thrombocytopenia, unspecified
CPT/HCPCS: 36430; 86850; 86900; 86901; 86920; P9016

== ENCOUNTER 2025-06-04 10:12 | Day surgery (SDC) | payer MEDICARE, BC ==
[2025-06-04] MEDS: diphenhydrAMINE 25 MG CAP PO SCH (11:25)
[2025-06-04] MEDS: Acetaminophen 500 MG TAB PO SCH (11:25)
[2025-06-04] MEDS ORDERED: Acetaminophen 500 MG TAB ONE (11:25)
[2025-06-04] MEDS ORDERED: diphenhydrAMINE 25 MG CAP ONE (11:25)
[2025-06-04 15:10] VITALS: BP 134/62; TEMP 98.2
== END 2025-06-04 15:10 | disposition home or self-care (01) ==
LOC: ONC/OP 10:12
PROVIDERS: ATTEND Internal Medicine Hematology & Oncology
DX: D64.9 Anemia, unspecified (principal)
CPT/HCPCS: 36430; 86850; 86900; 86901; 86920; P9016

== ENCOUNTER 2025-08-16 10:56 | Day surgery (SDC) | payer MEDICARE, BC ==
[2025-08-16] MEDS ORDERED: Acetaminophen 500 MG TAB ONE (11:56)
[2025-08-16] MEDS ORDERED: diphenhydrAMINE 25 MG CAP ONE (11:56)
[2025-08-16] MEDS: Acetaminophen 500 MG TAB PO SCH (12:13)
[2025-08-16] MEDS: diphenhydrAMINE 25 MG CAP PO SCH (12:13)
[2025-08-16 14:49] VITALS: TEMP 97.9
[2025-08-16 14:51] VITALS: BP 153/68
== END 2025-08-16 14:52 | disposition home or self-care (01) ==
LOC: ONC/OP 10:56
PROVIDERS: ATTEND Internal Medicine Hematology & Oncology
DX: D64.9 Anemia, unspecified (principal); D69.59 Other secondary thrombocytopenia; F17.210 Nicotine dependence, cigarettes, uncomplicated
CPT/HCPCS: 36430; 86850; 86900; 86901; 86920; P9016

== ENCOUNTER 2025-09-09 10:19 | Day surgery (SDC) | payer MEDICARE, BC ==
[2025-09-09] MEDS ORDERED: diphenhydrAMINE 25 MG CAP ONE (11:28)
[2025-09-09] MEDS ORDERED: Acetaminophen 500 MG TAB ONE (11:28)
[2025-09-09] MEDS: diphenhydrAMINE 25 MG CAP PO SCH (11:42)
[2025-09-09] MEDS: Acetaminophen 500 MG TAB PO SCH (11:42)
[2025-09-09 13:57] VITALS: BP 131/62; TEMP 98.3
== END 2025-09-09 14:12 | disposition home or self-care (01) ==
LOC: ONC/OP 10:19
PROVIDERS: ATTEND Internal Medicine Hematology & Oncology
DX: D64.9 Anemia, unspecified (principal); D69.59 Other secondary thrombocytopenia; F17.210 Nicotine dependence, cigarettes, uncomplicated
CPT/HCPCS: 36430; 86850; 86900; 86901; 86920; P9016

== ENCOUNTER 2025-10-05 09:05 | Day surgery (SDC) | payer MEDICARE, BC ==
[2025-10-05] MEDS ORDERED: Acetaminophen 500 MG TAB ONE (09:45)
[2025-10-05] MEDS ORDERED: diphenhydrAMINE 25 MG CAP ONE (09:45)
[2025-10-05] MEDS: Acetaminophen 500 MG TAB PO SCH (09:46)
[2025-10-05] MEDS: diphenhydrAMINE 25 MG CAP PO SCH (09:46)
[2025-10-05 14:23] VITALS: TEMP 98.2
[2025-10-05 14:25] VITALS: BP 145/68
== END 2025-10-05 14:25 | disposition home or self-care (01) ==
LOC: ONC/OP 09:05
PROVIDERS: ATTEND Internal Medicine Hematology & Oncology
DX: D64.9 Anemia, unspecified (principal); D69.6 Thrombocytopenia, unspecified
CPT/HCPCS: 36430; 86850; 86900; 86901; 86920; G0463; P9016; 99211